=== PATIENT | male | born 1955 | race Two or more races ===

== ENCOUNTER 2024-11-12 07:20 | Inpatient (IN) | payer OTHER ==
[~2024-11-12] VITALS: Ht 180.3 cm; Wt 113.1 kg
[~2024-11-12 07:20] MED LIST: ATEN50TA PO; ATOR10TA52 PO; OMEP1CAP70 PO
--- NOTE | 2024-11-12 07:51 | ED.PDOC ---
HPI Comments 68-year-old male presents with a chief complaint of chest pain x 1 hour with associated sweats. Patient reports that his pain is localized to his substernal chest, nonradiating, describes as pressure and burning sensation, and is associated with sweats. Patients EKG shows A-Fib, but patient denies any history of A-Fib. Patient denies any use of blood thinners or ASA use. No other symptoms or modifying factors present at this time. Chief Complaint: Chest Pain Time Seen by MD: 07:33 Reviewed Notes: Medications, Allergies Allergies: Coded Allergies: NO KNOWN ALLERGIES (Unverified , 11/12/24) Information Source: Patient Mode of Arrival: Ambulatory Severity: Moderate Timing: Hours Duration: Since onset Prehospital treatment: None Location: Substernal Radiation: No Radiation Quality: Pressure, Burning Onset: At Rest Past Medical History PAST MEDICAL HISTORY: Pt Confused Surgical History: Denies all surgeries Family History Family History: Reviewed,noncontributory to illness Social History Smoker: Non-Smoker Alcohol: Denies ETOH Use Drugs: Denies Drug Use Constitutional: reports: sweats; denies: chills, diaphoresis, fatigue, fever, malaise, weakness, others EENTM: denies: blurred vision, double vision, ear bleeding, ear discharge, ear drainage, ear pain, ear ringing, eye pain, eye redness, hearing loss, mouth pain, mouth swelling, nasal discharge, nose bleeding, nose congestion, nose pain, photophobia, tearing, throat pain, throat swelling, voice changes, others Respiratory: denies: cough, hemoptysis, orthopnea, SOB at rest, shortness of breath, SOB with excertion, stridor, wheezing, others Cardiovascular: reports: chest pain; denies: dizzy spells, diaphoresis, Dyspnea on exertion, edema, irregular heart beat, left arm pain, lightheadedness, palpitations, PND, syncope, others Gastrointestinal: denies: abdomen distended, abdominal pain, blood streaked bowels, constipated, diarrhea, dysphagia, difficulty swallowing, hematemesis, melena, nausea, poor appetite, poor fluid intake, rectal bleeding, rectal pain, vomiting, others Genitourinary: denies: burning, dysuria, flank pain, frequency, hematuria, incontinence, penile discharge, penile sore, pain, testicle pain, testicle swelling, urgency, others Neurological: denies: dizziness, fainting, headache, left sided numbness, left sided weakness, numbness, paresthesia, pre-existing deficit, right sided numbness, right sided weakness, seizure, speech problems, tingling, tremors, weakness, others Musculoskeletal: denies: back pain, gout, joint pain, joint swelling, muscle pain, muscle stiffness, neck pain, others Integumetry: denies: bruises, change in color, change in hair/nails, dryness, laceration, lesions, lumps, rash, wounds, others Allergic/Immunocompromised: denies: Difficulty Healing, Frequent Infections, Hives, Itching, others Hematologic/Lymphatic: denies: anemia, blood clots, easy bleeding, easy bruising, swollen glands, others Endocrine: denies: excessive hunger, excessive sweating, excessive thirst, excessive urination, flushing, intolerance to cold, intolerance to heat, unexplained weight gain, unexplained weight loss, others Psychiatric: denies: anxiety, bipolar disorder, depression, hopeless, panic disorder, schizophrenia, sleepless, suicidal, others All Other Systems: Reviewed and Negative Physical Exam General Appearance: Mild Distress, Normal HEENT: Normal ENT Inspection, Pharynx Normal, TMs Normal Neck: Full Range of Motion, Non-Tender, Normal, Normal Inspection Respiratory: Chest Non-Tender, Lungs Clear, No Accessory Muscle Use, No Respiratory Distress, Normal Breath Sounds Cardiovascular: No Edema, No JVD, No Murmur, No Gallop, Normal Peripheral Pulses, Tachycardia Breast Exam: Deferred Gastrointestinal: No Organomegaly, Non Tender, No Pulsatile Mass, Normal Bowel Sounds, Soft Genitalia: Deferred Pelvic: Deferred Rectal: Deferred Extremities: No calf tenderness, Normal capillary refill, Normal inspection, Normal range of motion, Non-tender, No pedal edema Musculoskeletal : Apperance: Normal 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 Was a procedure done?: No CP Differential Dx Differential Diagnosis: A-fib, Anxiety / Panic Attack, MAT, AL, PAC's, PVC's Differential Diagnosis: CHF, HTN Essential Differential Diagnosis: Gastritis, Myocardial Infarction X-Ray, Labs, Meds, VS Vital Signs Date Time Temp Pulse Resp B/P (MAP) Pulse Ox O2 Delivery O2 Flow Rate FiO2 11/12/24 08:40 139 11/12/24 08:06 117/70 11/12/24 07:51 145 11/12/24 07:50 144 15 117/70 (86) 94 11/12/24 07:50 Room Air* 0 21 11/12/24 07:40 97.9 145 15 126/93 (104) 100 11/12/24 07:28 145 Lab Test 11/12/24 09:08 11/12/24 07:50 Range/Units Troponin I High Sensitivity 26 12 </=54 ng/L White Blood Count 7.6 4.4-10.8 10^3/uL Red Blood Count 5.36 4.5-5.90 10^6/uL Hemoglobin 15.5 13.5-17.5 g/dL Hematocrit 45.5 41.0-53.0 % Mean Corpuscular Volume 84.8 80.0-100.0 fL Mean Corpuscular Hemoglobin 28.9 28.0-32.0 pg Mean Corpuscular Hemoglobin Concent 34.0 32.0-36.0 g/dL Red Cell Distribution Width 15.3 H 11.8-14.3 % Platelet Count 190 140-450 10^3/uL Mean Platelet Volume 8.3 6.9-10.8 fL Neutrophils (%) (Auto) 67.0 37.0-80.0 % Lymphocytes (%) (Auto) 22.2 10.0-50.0 % Monocytes (%) (Auto) 6.5 0.0-12.0 % Eosinophils (%) (Auto) 3.5 0.0-7.0 % Basophils (%) (Auto) 0.8 0.0-2.0 % Neutrophils # (Auto) 5.1 1.6-8.6 10 ^3/uL Lymphocytes # (Auto) 1.7 0.4-5.4 10 ^3/uL Monocytes # (Auto) 0.5 0-1.3 10 ^3/uL Eosinophils # (Auto) 0.3 0-0.8 10 ^3/uL Basophils # (Auto) 0.1 0-0.2 10 ^3/uL Nucleated Red Blood Cells 0.0 % Sodium Level 141 136-145 mmol/L Potassium Level 3.8 3.5-5.1 mmol/L Chloride Level 111 H 98-107 mmol/L Carbon Dioxide Level 21 20-31 mmol/L Anion Gap 9 5-15 Blood Urea Nitrogen 19 9-23 mg/dL Creatinine 0.96 0.700-1.30 mg/dL Glomerular Filtration Rate Calc 85 >90 mL/min BUN/Creatinine Ratio 19.8 10.0-20.0 Serum Glucose 140 H 74-106 mg/dL Calcium Level 9.7 8.7-10.4 mg/dL B-Type Natriuretic Peptide 207.27 0-100 pg/mL Current Medications Medications (Trade) Dose Ordered Sig/Lizbeth Route Start Time Stop Time Status Last Admin Sodium Chloride 1,000 ml @ 1,000 mls/hr Q1H ONCE IV 11/12/24 07:45 11/12/24 08:44 DC 11/12/24 08:03 Aspirin 324 mg ONCE ONCE PO 11/12/24 07:45 11/12/24 07:46 DC 11/12/24 08:03 Nitroglycerin (Ntrostat Sublingual) 0.4 mg ONCE ONCE SL 11/12/24 07:45 11/12/24 07:46 DC 11/12/24 08:06 Sodium Chloride 1,000 ml @ 1,000 mls/hr Q1H ONCE IV 11/12/24 09:30 11/12/24 10:29 11/12/24 09:42 Time of 1ST Reevaluation: 08:03 Reevaluation 1ST: Unchanged Patient Education/Counseling: Diagnosis, Treatment, Prognosis Family Education/Counseling: Diagnosis, Treatment, Prognosis Departure 1 Departure Time of Disposition: 10:27 (Patient presented with chest pain that was concerning for possible STEMI, ACS, PE, Pneumonia, Muscle Strain, COPD, Dissec tion. Data: 1. I ordered and reviewed the result of at least 3 labs including a CBC, BMP, and Troponin. 2. I independently interpreted the following tests: EKG which shows AFib with RVR and Chest X-ray which shows benign chest.Risk:This patient has a high risk of morbidity due to further diagnostic testing or treatment and may suffer from an acute cardiac or respiratory disorder. Workup reveals concern for ACS and possible new onset AFib and patient should be admitted for further workup and possible expert consultation. ) Impression: Primary Impression: Acute chest pain Additional Impression: Atrial fibrillation with RVR Disposition: 09 ADMITTED INPATIENT Admit to: Tele Condition: Guarded Critical Care Note Critical Care Time?: Yes Critical care comment: Acute chest pain Authorized and Performed by: Rohit Molina MD Total critical care time: Approximately 34 minutes Due to a high probability of clinically significant, life threatening deterioration, the patient required my highest level of preparedness to intervene emergently and I personally spent this critical care time directly and personally managing the patient. This critical care time included obtaining a history; examining the patient; pulse oximetry; ordering and review of studies; arranging urgent treatment with development of a management plan; evaluation of patient's response to treatment; frequent reassessment; and, discussions with other providers. This critical care time was performed to assess and manage the high probability of imminent, life-threatening deterioration that could result in multi-organ failure. It was exclusive of separately billable procedures and treating other patients and teaching time. Please see my other sections and the rest of the note for further information on patient assessment and treatment. Stability Stability form required: No Heart Score Heart Score: Heart Score Response (Comments) Value History Moderate Suspicious 1 EKG Repolarization Disturb 1 Age >65 2 Risk Factors 1 or 2 risk factors 1 Troponin 1-2 x's Normal limit 1 Total 6 I personally scribed for ROHIT MOLINA MD ([email or web address]) on 11/12/24 at 07:51. Electronically submitted by Mamadou Dee ([email or web address]). ROHIT MOLINA MD Nov 12, 2024 07:51
[2024-11-12 08:01] LABS: Basophils # (auto) 0.1 10 ^3/uL (0-0.2); Basophils % (auto) 0.8 % (0.0-2.0); Eosinophils # (auto) 0.3 10 ^3/uL (0-0.8); Eosinophils % (auto) 3.5 % (0.0-7.0); Hematocrit 45.5 % (41.0-53.0); Hemoglobin 15.5 g/dL (13.5-17.5); Lymphocytes # (auto) 1.7 10 ^3/uL (0.4-5.4); Lymphocytes % (auto) 22.2 % (10.0-50.0); Mean Corpuscular Hemoglobin 28.9 pg (28.0-32.0); Mean Corpuscular Volume 84.8 fL (80.0-100.0); Monocytes # (auto) 0.5 10 ^3/uL (0-1.3); Monocytes % (auto) 6.5 % (0.0-12.0); Neutrophils # (auto) 5.1 10 ^3/uL (1.6-8.6); Platelet Count (auto) 190 10^3/uL (140-450); Red Blood Cells 5.36 10^6/uL (4.5-5.90); Red Cell Distribution Width 15.3 % (11.8-14.3); White Blood Cell 7.6 10^3/uL (4.4-10.8)
[2024-11-12] MEDS: SODIUM CHLORIDE 0.9% 1,000 ML IV ONE ×2 (08:03→09:42)
[2024-11-12] MEDS: ASPirin 81 mg TAB PO ONE (08:03)
[2024-11-12] MEDS: NITROGLYCERIN 0.4 MG SL TAB SL ONE (08:06)
[2024-11-12 08:10] LABS: Potassium 3.8 mmol/L (3.5-5.1); Sodium 141 mmol/L (136-145)
[2024-11-12 08:11] LABS: Anion Gap 9 (5-15); Calcium 9.7 mg/dL (8.7-10.4); Carbon Dioxide 21 mmol/L (20-31)
[2024-11-12 08:16] LABS: BUN/Creatinine Ratio 19.8 (10.0-20.0); Blood Urea Nitrogen 19 mg/dL (9-23); Chloride 111 mmol/L (98-107)
[2024-11-12 08:20] LABS: Glucose 140 mg/dL (74-106)
--- NOTE | 2024-11-12 08:41 | ECG ---
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
[2024-11-12] MEDS: METOPROLOL TARTRATE 1MG/1ML-5ML VIAL IV ONE (09:15)
[2024-11-12] MEDS ORDERED: HYDROcodone-ACET 5/325MG TAB PO PRN (12:45)
[2024-11-12] MEDS ORDERED: NITROGLYCERIN 0.4 MG SL TAB SL PRN (12:45)
[2024-11-12] MEDS ORDERED: ONDANSETRON HCL 4 MG/2 ML VIAL IV PRN (12:45)
[2024-11-12] MEDS ORDERED: MORPHINE SULFATE INJ 2 MG/ml SYRG IV PRN ×2 (12:45)
[2024-11-12] MEDS ORDERED: ACETAMINOPHEN 325 MG TAB PO PRN (12:45)
--- NOTE | 2024-11-12 12:49 | DVHHP2 ---
History of Present Illness Reason for Visit: Chest pain History of Present Illness This 68-year-old male with no significant past medical history presents in the ED with a chief complaint of chest pain. The patient reports chest pain started this morning, described as "chest being full and heart burning" localized on chest and nonradiating. Symptoms is associated with lightheadedness, palpitations, and diaphoresis for which prompted the patient to go to the emergency department. The patient reports history of SVT when he was in his 20s and GERD. Other than the has been healthy throughout his life. He denies tobacco, illicit drug, or ETOH use. Past Medical History SVT Past Surgical History Denies Family History Reviewed, non-contributory to the management of this case. Past Social History The patient lives at home, denies smoking, alcohol or illicit drugs abuse. Review of Systems Constitutional: Yes: Malaise; No: Fever, Chills, Sweats, Weakness, Other Eyes: No: Pain, Vision change, Conjunctivae inflammation, Eyelid inflammation, Other, Redness ENT: No: Ear pain, Ear discharge, Nose pain, Nose discharge, Nose congestion, Mouth pain, Mouth swelling, Throat pain, Throat swelling, Other Respiratory: No: Cough, Dry, Shortness of breath, SOB with excertion, Wheezing, Hemoptysis, Pleuritic Pain, Sputum, Wheezing, Other Cardiovascular: Chest Pain, Palpitations; No: Orthopnea, Paroxysmal Noc. Dyspnea, Edema, Lt Headedness, Other Gastrointestinal: No: Nausea, Vomiting, Abdominal Pain, Diarrhea, Constipation, Melena, Hematochezia, Other Genitourinary: No Dysuria, No Frequency, No Incontinence, No Hematuria, No Retention, No Other Musculoskeletal: No: other, neck pain, shoulder pain, arm pain, back pain, hand pain, leg pain, foot pain Skin: No: Rash, Lesions, Jaundice, Bruising, Other Neurological: No: Weakness, Numbness, Incoordination, Change in speech, Confusion, Seizures, Other Allergies: Coded Allergies: NO KNOWN ALLERGIES (Unverified , 11/12/24) Exam Vital Signs Vital Signs Date Time Temp Pulse Resp B/P (MAP) Pulse Ox O2 Delivery O2 Flow Rate FiO2 11/12/24 12:00 101 15 95/59 (71) 99 11/12/24 07:50 Room Air* 0 21 11/12/24 07:40 97.9 General Appearance: Alert, Oriented X3, Cooperative, mild distress HEENT: Atraumatic, PERRLA, EOMI, Mucous membr. moist/pink Respiratory: Clear to auscultation, Normal air movement Cardiovascular: Other (Atrial fibrillation low 100s) Abdominal: Normal bowel sounds, Soft, No tenderness, No hepatospenomegaly Extremities: No clubbing, No cyanosis, No edema, Normal pulses, No tenderness/swelling Skin: No rashes, No breakdown, No significant lesion Neuro: Normal gait, Normal speech, Normal tone Psych/Mental Status: Mental status NL Labs/Xrays Labs Test 11/12/24 11:13 11/12/24 07:50 Range/Units Troponin I High Sensitivity 74 *H </=54 ng/L White Blood Count 7.6 4.4-10.8 10^3/uL Red Blood Count 5.36 4.5-5.90 10^6/uL Hemoglobin 15.5 13.5-17.5 g/dL Hematocrit 45.5 41.0-53.0 % Mean Corpuscular Volume 84.8 80.0-100.0 fL Mean Corpuscular Hemoglobin 28.9 28.0-32.0 pg Mean Corpuscular Hemoglobin Concent 34.0 32.0-36.0 g/dL Red Cell Distribution Width 15.3 H 11.8-14.3 % Platelet Count 190 140-450 10^3/uL Mean Platelet Volume 8.3 6.9-10.8 fL Neutrophils (%) (Auto) 67.0 37.0-80.0 % Lymphocytes (%) (Auto) 22.2 10.0-50.0 % Monocytes (%) (Auto) 6.5 0.0-12.0 % Eosinophils (%) (Auto) 3.5 0.0-7.0 % Basophils (%) (Auto) 0.8 0.0-2.0 % Neutrophils # (Auto) 5.1 1.6-8.6 10 ^3/uL Lymphocytes # (Auto) 1.7 0.4-5.4 10 ^3/uL Monocytes # (Auto) 0.5 0-1.3 10 ^3/uL Eosinophils # (Auto) 0.3 0-0.8 10 ^3/uL Basophils # (Auto) 0.1 0-0.2 10 ^3/uL Nucleated Red Blood Cells 0.0 % Sodium Level 141 136-145 mmol/L Potassium Level 3.8 3.5-5.1 mmol/L Chloride Level 111 H 98-107 mmol/L Carbon Dioxide Level 21 20-31 mmol/L Anion Gap 9 5-15 Blood Urea Nitrogen 19 9-23 mg/dL Creatinine 0.96 0.700-1.30 mg/dL Glomerular Filtration Rate Calc 85 >90 mL/min BUN/Creatinine Ratio 19.8 10.0-20.0 Serum Glucose 140 H 74-106 mg/dL Calcium Level 9.7 8.7-10.4 mg/dL B-Type Natriuretic Peptide 207.27 0-100 pg/mL Assessment/Plan Assessment/Plan # AFib with RVR, new onset # NSTEMI # chest pain to rule out ACS # hx of SVT Admit to telemetry unit Amiodarone drip Therapeutic Lovenox Chest pain protocol--asa, statins Magnesium Monitor electrolytes and replete as needed Monitor ECG and troponin Cardiology consult Echocardiogram IVF check for uds, and ua # GERD PPI # obesity # hyperglycemia Lifestyle modification counseled with diet, regular exercise, weight loss Check lipid panel, A1c, and TSH DVT prophylaxis Medical plan discussed with patient and RN Plan discussed with: Patient My Orders Orders - SYEDA CASTILLO Procedure Category Date Status Time Admit ADMIT 11/12/24 Verified 12:33 Code Status CODE 11/12/24 Verified 12: 0.9% Ns 1000 Ml PHA 11/12/24 Verified 12:45 Hydrocodone-Acet PHA 11/12/24 Verified 5/325mg Tab (Jones 12:45 Ondansetron Hcl PHA 11/12/24 Verified (Zofran) 12:45 Complete Blood Count LAB 11/13/24 Verified 04:00 Comprehensive LAB 11/13/24 Verified Metabolic Panel 04:00 Cardiac DIET 11/12/24 Verified Diet-2gna,Lofat,Lochol Lunch Echo 2d Mode Cardiac US 11/12/24 Verified DOP 12:33 Condition: Fair MARY 11/12/24 Verified 12:33 Acetaminophen Tablet PHA 11/12/24 Verified (Tylenol Tablet) 12:45 Morphine Sulfate PHA 11/12/24 Verified Injection 12:45 Nitroglycerin PHA 11/12/24 Verified Sublingual (Ntrostat 12:45 Morphine Sulfate PHA 11/12/24 Verified Injection 12:45 Stat Ekg For Chest MARY 11/12/24 Verified Pain 12:33 Notify Md Of Changes MARY 11/12/24 Verified From Base 12:33 Gas Maker For MARY 11/12/24 Verified 24 Hours 12:33 Emergency Dysrhythmia MARY 11/12/24 Verified Protocol 12:33 Rhythm Strips Once MARY 11/12/24 Verified Every Shift 12:33 Oxygen By Nasal RT 11/12/24 Verified Cannula 12:33 * Cardiology Consult CONS 11/12/24 Verified 12:33 Lipid Panel LAB 11/12/24 Verified 12:33 Thyroid Stimulating LAB 11/12/24 Verified Hormone 12:33 Hemoglobin A1c LAB 11/12/24 Verified 12:33 Aspirin Tablet PHA 11/13/24 Verified 10:00 Atorvastatin (Lipitor) PHA 11/12/24 Verified 22:00 Enoxaparin Sodium PHA 11/12/24 Verified (Lovenox) 22:00 Enoxaparin Sodium PHA 11/12/24 Verified (Lovenox) 12:45 Amiodarone Drip 1 PHA 11/12/24 Verified Mg/Min X 6hr 12:45 Amiodarone Drip 0.5 PHA 11/12/24 Verified Mg/Min 18:45 Chest Portable XY 11/12/24 Verified 12:33 Magnesium LAB 11/12/24 Verified 12:33 Urinalysis LAB 11/12/24 Verified 12:33 PTPTT LAB 11/12/24 Verified 12:33 Magnesium To PHA 11/12/24 Verified 12:45 Date of Service: Nov 12, 2024 Billing Provider: SYEDA CASTILLO Common Visit Codes: [id number] INP/OBS CARE (HIGH) SYEDA CASTILLO Nov 12, 2024 12:49
[2024-11-12 12:55] LABS: Urine Bacteria None Seen /hpf (None Seen)
[2024-11-12 13:06] LABS: Urine Blood Negative /uL (Negative); Urine Clarity Clear (Clear); Urine Color Yellow (Yellow); Urine Protein, UAD TRACE (Negative); Urine Specific Gravity 1.024 (1.001-1.035); Urine Squamous Epithelial Cell FEW /hpf (<5); Urine Urobilinogen 3 mg/dL (Negative); Urine WBC 1 /HPF (0-3)
[2024-11-12 13:19] LABS: Magnesium 1.9 mg/dL (1.6-2.6)
[2024-11-12] MEDS: MAGNESIUM SULFATE 1GM/100ML 100 ML IV SCH (13:26)
[2024-11-12] MEDS: SODIUM CHLORIDE 0.9% 1,000 ML IV SCH (13:28)
--- NOTE | 2024-11-12 13:35 | DVH ---
CHEST RADIOGRAPH Indication: chest pain Technique: Single frontal view of the chest was obtained Comparison: None FINDINGS: Lines and Tubes: None Lungs: No focal consolidation. Pleura: No effusion. No pneumothorax. Cardiomediastinal contours: Unremarkable Bones: No acute osseous abnormality. IMPRESSION: 1. No acute cardiopulmonary disease.
[2024-11-12] MEDS: AMIODARONE 360mg/200mL PREMIX 200 ML IV ONE (13:53)
[2024-11-12] MEDS: PANTOPRAZOLE 40 MG/10 ML VIAL INJ IV ONE (14:00)
[2024-11-12] MEDS: ENOXAPARIN SOD 100 MG/1 ML SYRINGE SC ONE (14:05)
[2024-11-12 14:24] LABS: INR 1.08 (0.9-1.15); Partial Thromboplastin Time 27.2 SEC (24.5-34.5); Prothrombin Time 11.4 sec (9.3-11.8)
[2024-11-12 19:30] VITALS: PULSE 87; RESP 17; O2SAT 97
[2024-11-12] MEDS: AMIODARONE 360mg/200mL PREMIX 200 ML IV SCH (19:45)
[2024-11-12 21:54] VITALS: BP 126/73; PULSE 81; RESP 16; RESP 18; TEMP 98.3; O2SAT 97; O2SAT 98
[2024-11-12] MEDS: ATORVASTATIN 20 MG TAB PO SCH (22:51)
[2024-11-12] MEDS: ENOXAPARIN SOD 100 MG/1 ML SYRINGE SC SCH (22:52)
--- NOTE | 2024-11-12 23:21 | DVHSR ---
APPROVED REPORT EXAM: LIMITED Two-dimensional and M-mode echocardiogram with Doppler and color Doppler. Blood Pressure: 95/59 mmHg INDICATION NSTEMI RISK FACTORS Height: 5' 11", Weight: 235 DIMENSIONS LVDd5.2 (3.8-5.7cm)LA (2D)4.3 (1.9-4.0cm)Aortic Root4.1 (2.0-3.7cm) LVDs3.8 (2.5-4.0cm)LA (MM) (1.9-4.0cm)Aortic Cusp Exc2.1 (1.5-2.0cm) EF (%) 52.0 (55-70%)Rt. Atrium4.2 (1.9-4.0cm)Asc. Aorta cm IVSd1.4 (0.7-1.1cm)RV (D) (1.8-2.4cm) PWd1.5 (0.7-1.1cm) Mitral Valve MitralMitral Stenosis E wave1.20m/sMV Mean GR.mmHg E/A ratio0.02D MVAcm2 Aortic Valve Aortic ValveAortic Stenosis V11.10m/Hazel Mean GR.4mmHg V21.20m/Hazel Peak GR.6mmHg LVOT Diameter2.5 (1.8-2.4cm)Doppler AVA4.50cm2 Pulmonic Valve V20.90m/s Other Information Quality : Technically LimitedRhythm : Abnormal. Technically limited study due to rhythm. Conclusion MILD LVH AND MILD LV DIASTOLIC DYSFUNCTION LV EJECTION FRACTION IS 65% NORMAL VALVES NO EFFUSION
[2024-11-13] VITALS (8 sets, daily range): BP systolic 102–139; BP diastolic 57–78; PULSE 53–78; RESP 14–18; TEMP 97.3–98.3; O2SAT 94–99
[2024-11-13 07:13] LABS: Basophils # (auto) 0 10 ^3/uL (0-0.2); Basophils % (auto) 0.5 % (0.0-2.0); Eosinophils # (auto) 0.2 10 ^3/uL (0-0.8); Eosinophils % (auto) 2.3 % (0.0-7.0); Hematocrit 39.3 % (41.0-53.0); Hemoglobin 13.6 g/dL (13.5-17.5); Lymphocytes # (auto) 1.3 10 ^3/uL (0.4-5.4); Lymphocytes % (auto) 18.8 % (10.0-50.0); Mean Corpuscular Hemoglobin 29.5 pg (28.0-32.0); Mean Corpuscular Hgb Conc. 34.6 g/dL (32.0-36.0); Mean Corpuscular Volume 85.2 fL (80.0-100.0); Monocytes # (auto) 0.4 10 ^3/uL (0-1.3); Monocytes % (auto) 5.3 % (0.0-12.0); Neutrophils # (auto) 5.2 10 ^3/uL (1.6-8.6); Neutrophils % (auto) 73.1 % (37.0-80.0); Platelet Count (auto) 174 10^3/uL (140-450); Red Blood Cells 4.62 10^6/uL (4.5-5.90); Red Cell Distribution Width 14.9 % (11.8-14.3); White Blood Cell 7.1 10^3/uL (4.4-10.8)
--- NOTE | 2024-11-13 07:13 | ECG ---
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
[2024-11-13 07:29] LABS: Alanine Aminotransferase 15 U/L (7-40); Alkaline Phosphatase 90 U/L (46-116); Anion Gap 8 (5-15); BUN/Creatinine Ratio 15.4 (10.0-20.0); Blood Urea Nitrogen 14 mg/dL (9-23); Calcium 8.9 mg/dL (8.7-10.4); Carbon Dioxide 23 mmol/L (20-31); Sodium 141 mmol/L (136-145)
[2024-11-13 07:30] LABS: Albumin 3.8 g/dL (3.2-4.8); Aspartate Aminotransferase 18 U/L (13-40)
[2024-11-13 07:31] LABS: Total Protein 5.8 g/dL (5.7-8.2)
[2024-11-13 07:33] LABS: Chloride 110 mmol/L (98-107); Glucose 115 mg/dL (74-106)
[2024-11-13 07:37] LABS: Bilirubin, Total 0.6 mg/dL (0.2-1.0)
[2024-11-13] MEDS: PANTOPRAZOLE 40 MG/10 ML VIAL INJ IV SCH (10:34)
[2024-11-13] MEDS: ASPirin 81 mg TAB PO SCH (10:34)
--- NOTE | 2024-11-13 12:36 | DVHPN2 ---
Progress Note Date Seen: Nov 13, 2024 Medical Necessity Reason Pt with a Central, PICC or Fol: No Subjective Patient reports: No new complaints Review of Systems: HEENT:Normal, CVS:Normal, RESPIRATORY:Normal, GI:Normal, :Normal, MSK:Normal, NEURO:Normal Objective vital signs Vital Sign Date Time Temp Pulse Resp B/P (MAP) Pulse Ox O2 Delivery O2 Flow Rate FiO2 11/13/24 09:00 98.0 56 16 102/57 (72) 98 98.0 11/12/24 21:54 Room Air* 0 21 Total Intake and Output 11/12/24 11/12/24 11/13/24 14:59 22:59 06:59 Intake Total 2208.33 ml 649.97 ml 300 ml Balance 2208.33 ml 649.97 ml 300 ml medications Current Medications Medications Dose Ordered Sig/Lizbeth Route Start Time Stop Time Status Last Admin Dose Admin Sodium Chloride 1,000 ml @ 75 mls/hr [id number] IV 11/12/24 12:45 11/13/24 06:14 75 MLS/HR Acetaminophen/ Hydrocodone Bitart 1 tab Q4HP PRN PO 11/12/24 12:45 Ondansetron HCl 4 mg Q4HP PRN IV 11/12/24 12:45 Acetaminophen 650 mg Q6HP PRN PO 11/12/24 12:45 Morphine Sulfate 2 mg Q4HPRN PRN IV 11/12/24 12:45 Nitroglycerin 0.4 mg Q5MINP PRN SL 11/12/24 12:45 Morphine Sulfate 2 mg Q30M PRN IV 11/12/24 12:45 Aspirin 81 mg DAILY PO 11/13/24 10:00 11/13/24 10:34 81 MG Atorvastatin Calcium 40 mg HS PO 11/12/24 22:00 11/12/24 22:51 40 MG Enoxaparin Sodium 110 mg Q12HR SC 11/12/24 22:00 11/13/24 10:34 110 MG Pantoprazole Sodium 40 mg DAILY IV 11/13/24 10:00 11/13/24 10:34 40 MG Examination: GENERAL:Normal, HEENT:Normal, NECK:Normal, LUNGS:Normal, CVS:Normal, ABDOMEN:Normal, MSK:Normal, SKIN:Normal, NEURO:Normal, :Normal laboratory and microbiology Laboratory Tests 11/13/24 06:12 Test 11/13/24 06:12 Range/Units Serum Glucose 115 H 74-106 mg/dL Problem List/Assessment/Plan Problem List/Assessment/Plan #1 a fib with rvr: cardio eval, echo #2 nstemi: cardio eval #3 hyperlipidemia #4 h/o svt advance care planning- full code- time spent 19 mins Plan discussed with: Patient Date of Service: Nov 13, 2024 Billing Provider: HARISH POWELL MD Common Visit Codes: [id number] INP/OBS CARE(HIGH) Secondary Visit Codes: [id number] CARE PLAN 30 MINUTES HARISH POWELL MD Nov 13, 2024 12:36
--- NOTE | 2024-11-13 16:00 | ECG ---
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
[2024-11-13] MEDS ORDERED: HYDROcodone-ACET 7.5/325MG TAB PO PRN (20:15)
--- NOTE | 2024-11-13 23:12 | DVHINCON2 ---
Date of service: Nov 13, 2024 Referring Physician Skip Reason for Consultation A Fib with RVR, NSTEMI History of Present Illness This is a 68 year old male with no significant past medical history who presented to the ED due to complaints of chest pain x 1 hour with associated sweats. Patient reports that his pain is localized to his substernal chest, nonradiating, describes as pressure and burning sensation, and is associated with sweats. Patients EKG shows A-Fib, but patient denies any history of A-Fib. Patient denies any use of blood thinners or ASA use. EKG which shows AFib with RVR. Troponin 12 > 26 > 74. Patient was admitted to the hospital. I am asked to consult on this patient. Family History: Diabetes mellitus G8 MOTHER Allergies: Coded Allergies: NO KNOWN ALLERGIES (Unverified , 11/12/24) Home Meds Reported Medications Omeprazole (Omeprazole Dr) 20 Mg Cap, 1 CAP PO BID for 100 Days, #200 11/13/24 Atorvastatin Calcium (ATORVASTATIN CALCIUM) 10 Mg Tab, 1 TAB PO DAILY for 100 Days, #100 11/13/24 Atenolol (Atenolol) 50 Mg Tab, 1 TAB PO DAILY for 100 Days, #100 11/13/24 Current Medications Current Medications Medications (Trade) Dose Ordered Sig/Lizbeth Route PRN Reason Start Time Stop Time Status Last Admin Aspirin 81 mg DAILY PO 11/13/24 10:00 11/13/24 12:32 DC 11/13/24 10:34 Pantoprazole Sodium (Protonix) 40 mg DAILY IV 11/13/24 10:00 11/13/24 10:34 Acetaminophen/ Hydrocodone Bitart ([place] 7.5/325MG Tab) 1 tab Q6HP PRN PO SEVERE PAIN (7-10 PAIN SCALE) 11/13/24 20:15 Cancel Review of Systems Constitutional: reports: sweats; denies: chills, diaphoresis, fatigue, fever, malaise, weakness, others EENTM: denies: blurred vision, double vision, ear bleeding, ear discharge, ear drainage, ear pain, ear ringing, eye pain, eye redness, hearing loss, mouth pain, mouth swelling, nasal discharge, nose bleeding, nose congestion, nose pain, photophobia, tearing, throat pain, throat swelling, voice changes, others Respiratory: denies: cough, hemoptysis, orthopnea, SOB at rest, shortness of breath, SOB with excertion, stridor, wheezing, others Cardiovascular: reports: chest pain; denies: dizzy spells, diaphoresis, Dyspnea on exertion, edema, irregular heart beat, left arm pain, lightheadedness, palpitations, PND, syncope, others Gastrointestinal: denies: abdomen distended, abdominal pain, blood streaked bowels, constipated, diarrhea, dysphagia, difficulty swallowing, hematemesis, melena, nausea, poor appetite, poor fluid intake, rectal bleeding, rectal pain, vomiting, others Genitourinary: denies: burning, dysuria, flank pain, frequency, hematuria, incontinence, penile discharge, penile sore, pain, testicle pain, testicle swelling, urgency, others Neurological: denies: dizziness, fainting, headache, left sided numbness, left sided weakness, numbness, paresthesia, pre-existing deficit, right sided numbness, right sided weakness, seizure, speech problems, tingling, tremors, weakness, others Musculoskeletal: denies: back pain, gout, joint pain, joint swelling, muscle pain, muscle stiffness, neck pain, others Integumetry: denies: bruises, change in color, change in hair/nails, dryness, laceration, lesions, lumps, rash, wounds, others Allergic/Immunocompromised: denies: Difficulty Healing, Frequent Infections, Hives, Itching, others Hematologic/Lymphatic: denies: anemia, blood clots, easy bleeding, easy bruising, swollen glands, others Endocrine: denies: excessive hunger, excessive sweating, excessive thirst, excessive urination, flushing, intolerance to cold, intolerance to heat, unexplained weight gain, unexplained weight loss, others Psychiatric: denies: anxiety, bipolar disorder, depression, hopeless, panic disorder, schizophrenia, sleepless, suicidal, others All Other Systems: Reviewed and Negative Vital Signs Vital Signs Date Time Temp Pulse Resp B/P (MAP) Pulse Ox O2 Delivery O2 Flow Rate FiO2 11/13/24 21:04 98.3 60 14 131/63 (85) 97 98.3 11/13/24 20:00 Room Air* 0 21 Physical Exam GENERAL: Awake, alert, oriented. Obese LUNGS: Clear. CARDIOVASCULAR: Heart sounds are good. ABDOMEN: Soft. Labs/Diagnostic Data Labs Test 11/13/24 06:12 11/12/24 13:15 11/12/24 11:13 11/12/24 07:50 Range/Units White Blood Count 7.1 4.4-10.8 10^3/uL Red Blood Count 4.62 4.5-5.90 10^6/uL Hemoglobin 13.6 13.5-17.5 g/dL Hematocrit 39.3 #L 41.0-53.0 % Mean Corpuscular Volume 85.2 80.0-100.0 fL Mean Corpuscular Hemoglobin 29.5 28.0-32.0 pg Mean Corpuscular Hemoglobin Concent 34.6 32.0-36.0 g/dL Red Cell Distribution Width 14.9 H 11.8-14.3 % Platelet Count 174 140-450 10^3/uL Mean Platelet Volume 9.0 6.9-10.8 fL Neutrophils (%) (Auto) 73.1 37.0-80.0 % Lymphocytes (%) (Auto) 18.8 10.0-50.0 % Monocytes (%) (Auto) 5.3 0.0-12.0 % Eosinophils (%) (Auto) 2.3 0.0-7.0 % Basophils (%) (Auto) 0.5 0.0-2.0 % Neutrophils # (Auto) 5.2 1.6-8.6 10 ^3/uL Lymphocytes # (Auto) 1.3 0.4-5.4 10 ^3/uL Monocytes # (Auto) 0.4 0-1.3 10 ^3/uL Eosinophils # (Auto) 0.2 0-0.8 10 ^3/uL Basophils # (Auto) 0 0-0.2 10 ^3/uL Nucleated Red Blood Cells 0.0 % Sodium Level 141 136-145 mmol/L Potassium Level 4.0 3.5-5.1 mmol/L Chloride Level 110 H 98-107 mmol/L Carbon Dioxide Level 23 20-31 mmol/L Anion Gap 8 5-15 Blood Urea Nitrogen 14 9-23 mg/dL Creatinine 0.91 0.700-1.30 mg/dL Glomerular Filtration Rate Calc 91 >90 mL/min BUN/Creatinine Ratio 15.4 10.0-20.0 Serum Glucose 115 H 74-106 mg/dL Calcium Level 8.9 8.7-10.4 mg/dL Total Bilirubin 0.6 0.2-1.0 mg/dL Aspartate Amino Transferase (AST) 18 13-40 U/L Alanine Aminotransferase (ALT) 15 7-40 U/L Alkaline Phosphatase 90 46-116 U/L Total Protein 5.8 5.7-8.2 g/dL Albumin 3.8 3.2-4.8 g/dL Prothrombin Time 11.4 9.3-11.8 sec Prothrombin Time INR 1.08 0.9-1.15 Activated Partial Thromboplast Time 27.2 24.5-34.5 SEC Troponin I High Sensitivity 74 *H </=54 ng/L Urine Color Yellow Yellow Urine Clarity Clear Clear Urine pH 6.0 5.0-9.0 Urine Specific [place] 1.024 1.001-1.035 Urine Protein Trace H Negative Urine Ketones Negative Negative Urine Blood Negative Negative /uL Urine Nitrite Negative Negative Urine Bilirubin Negative Negative Urine Urobilinogen 3 H Negative mg/dL Urine Leukocyte Esterase Negative Negative /uL Urine RBC None seen 0 - 3 /hpf Urine Microscopic WBC 1 0-3 /HPF Urine Squamous Epithelial Cells Few <5 /hpf Urine Bacteria None seen None Seen /hpf Urine Glucose Normal Normal mg/dL Hemoglobin A1c 5.6 <5.7 % A1C Magnesium Level 1.9 1.6-2.6 mg/dL B-Type Natriuretic Peptide 207.27 0-100 pg/mL Triglycerides Level 195 H < 150 mg/dL Cholesterol Level 165 < 200 mg/dL LDL Cholesterol 111 H < 100 mg/dL HDL Cholesterol 31 L 40-59 mg/dL Thyroid Stimulating Hormone (TSH) 2.26 0.55-4.78 uIU/mL Assessment A fib with RVR. NSTEMI. Hyperlipidemia History of SVT. Chest pain. GERD. Obesity. Plan/Recommendation I agree with your ongoing assessment and care of plan. Trend troponin. Telemetry reviewed. Echocardiogram. Morphine and [place] for pain management. Lipitor. DVT and GI prophylactics. Additional plan as per the hospital course. A total of 45 minutes was spent reviewing the patient record, examining the patient, making a diagnostic and therapeutic plan, discussing this plan with medical personnel, following up on diagnostic studies and following the patient for clinical stability excluding any and all procedures. At least 50% of this time was spent in direct, [id number] contact. Plan discussed with: Patient ALEJANDRO BALL MD Nov 13, 2024 22:44
[2024-11-14 00:49] VITALS: BP 149/81; PULSE 60; RESP 14; TEMP 98.7; O2SAT 96
[2024-11-14 05:00] VITALS: BP 141/69; PULSE 53; RESP 20; TEMP 97.9; O2SAT 96
[2024-11-14 08:00] VITALS: PULSE 74
[2024-11-14 09:00] VITALS: BP 124/68; PULSE 61; RESP 18; TEMP 98.3; O2SAT 98
--- NOTE | 2024-11-14 12:55 | DVHDS2 ---
Discharge Summary Date of Admission Nov 12, 2024 at 12:33 Date of Discharge: Nov 14, 2024 Labs/Diagnostic Data: Laboratory Results Test 11/13/24 06:12 11/12/24 13:15 11/12/24 11:13 11/12/24 07:50 White Blood Count 7.1 10^3/uL (4.4-10.8) Red Blood Count 4.62 10^6/uL (4.5-5.90) Hemoglobin 13.6 g/dL (13.5-17.5) Hematocrit 39.3 % (41.0-53.0) Mean Corpuscular Volume 85.2 fL (80.0-100.0) Mean Corpuscular Hemoglobin 29.5 pg (28.0-32.0) Mean Corpuscular Hemoglobin Concent 34.6 g/dL (32.0-36.0) Red Cell Distribution Width 14.9 % (11.8-14.3) Platelet Count 174 10^3/uL (140-450) Mean Platelet Volume 9.0 fL (6.9-10.8) Neutrophils (%) (Auto) 73.1 % (37.0-80.0) Lymphocytes (%) (Auto) 18.8 % (10.0-50.0) Monocytes (%) (Auto) 5.3 % (0.0-12.0) Eosinophils (%) (Auto) 2.3 % (0.0-7.0) Basophils (%) (Auto) 0.5 % (0.0-2.0) Neutrophils # (Auto) 5.2 10 ^3/uL (1.6-8.6) Lymphocytes # (Auto) 1.3 10 ^3/uL (0.4-5.4) Monocytes # (Auto) 0.4 10 ^3/uL (0-1.3) Eosinophils # (Auto) 0.2 10 ^3/uL (0-0.8) Basophils # (Auto) 0 10 ^3/uL (0-0.2) Nucleated Red Blood Cells 0.0 % Sodium Level 141 mmol/L (136-145) Potassium Level 4.0 mmol/L (3.5-5.1) Chloride Level 110 mmol/L (98-107) Carbon Dioxide Level 23 mmol/L (20-31) Anion Gap 8 (5-15) Blood Urea Nitrogen 14 mg/dL (9-23) Creatinine 0.91 mg/dL (0.700-1.30) Glomerular Filtration Rate Calc 91 mL/min (>90) BUN/Creatinine Ratio 15.4 (10.0-20.0) Serum Glucose 115 mg/dL (74-106) Calcium Level 8.9 mg/dL (8.7-10.4) Total Bilirubin 0.6 mg/dL (0.2-1.0) Aspartate Amino Transferase (AST) 18 U/L (13-40) Alanine Aminotransferase (ALT) 15 U/L (7-40) Alkaline Phosphatase 90 U/L (46-116) Total Protein 5.8 g/dL (5.7-8.2) Albumin 3.8 g/dL (3.2-4.8) Prothrombin Time 11.4 sec (9.3-11.8) Prothrombin Time INR 1.08 (0.9-1.15) Activated Partial Thromboplast Time 27.2 SEC (24.5-34.5) Troponin I High Sensitivity 74 ng/L (</=54) Urine Color Yellow (Yellow) Urine Clarity Clear (Clear) Urine pH 6.0 (5.0-9.0) Urine Specific [place] 1.024 (1.001-1.035) Urine Protein Trace (Negative) Urine Ketones Negative (Negative) Urine Blood Negative /uL (Negative) Urine Nitrite Negative (Negative) Urine Bilirubin Negative (Negative) Urine Urobilinogen 3 mg/dL (Negative) Urine Leukocyte Esterase Negative /uL (Negative) Urine RBC None seen /hpf (0 - 3) Urine Microscopic WBC 1 /HPF (0-3) Urine Squamous Epithelial Cells Few /hpf (<5) Urine Bacteria None seen /hpf (None Seen) Urine Glucose Normal mg/dL (Normal) Hemoglobin A1c 5.6 % A1C (<5.7) Magnesium Level 1.9 mg/dL (1.6-2.6) B-Type Natriuretic Peptide 207.27 pg/mL (0-100) Triglycerides Level 195 mg/dL (< 150) Cholesterol Level 165 mg/dL (< 200) LDL Cholesterol 111 mg/dL (< 100) HDL Cholesterol 31 mg/dL (40-59) Thyroid Stimulating Hormone (TSH) 2.26 uIU/mL (0.55-4.78) Other Laboratory Tests 11/13/24 06:12 Brief Hx & Hospital Course: see dictated note Condition at Discharge: Fair Final Diagnosis/Problems List a fib Discharge Disposition: Acute Care Facility Discharge Instruct/Medications Diet: Cardiac 2g Na,low cholest Activity: No Restrictions, As Tolerated Follow Up/Referral: fu with [facility] [place] Medications: per dec Discharge Statement: "Patient was advised to return to the ER or call 911 if any headaches, dizziness, shortness of breath, chest pain, abdominal pain, bleeding, fevers, or worsening of medical condition. Patient was counseled about treatment plan, medications, possible side effects, patientverbalized understanding. All questions were answered to the best of my ability. This discharge took greater then 30 minutes in planning, reviewing documentation, counseling the patient, and discussing with other team members." ASSESSMENT ASSESSMENT Assessment a fib Date of Service: Nov 14, 2024 Billing Provider: HARISH POWELL MD Common Visit Codes: 35415-NSP/OBS DISCH DAY >30min HARISH POWELL MD Nov 14, 2024 12:55
[2024-11-14 13:00] VITALS: BP 140/76; PULSE 58; RESP 20; TEMP 98; O2SAT 97
[2024-11-14] MEDS ORDERED: APIX5TAB PO (13:19)
--- NOTE | 2024-11-14 13:43 | DVHDS ---
DATE OF DISCHARGE: 11/14/2024 TRANSFER SUMMARY DATE OF TRANSFER: 11/14/2024 HISTORY OF PRESENT ILLNESS: The patient is a 68-year-old gentleman who was admitted with chest pain and burning accompanied by lightheadedness and palpitations. The patient has previous history of SVT. HOSPITAL COURSE: The patient was noted to be in atrial fibrillation with rapid ventricular rate. The patient was started on intravenous amiodarone that was subsequently stopped because of bradycardia. The patient was seen in Cardiology consult by Dr. Lemus. Echocardiogram done showed ejection fraction of 65%. Troponin level was mildly elevated at 74. The patient's TSH was normal at 2.26. The patient will now be transferred to [facility] for further workup including an ischemic workup. FINAL DIAGNOSES: * Atrial fibrillation with rapid ventricular rate. * Non-ST elevation myocardial infarction. * Hyperlipidemia. * History of supraventricular tachycardia. * Obesity. Time spent in discharge planning and review of plan with the patient, and nursing was 38 minutes. MD RUPAL Torres/AMIRAH TID: [id number] RECEIPT: [id number]
--- NOTE | 2024-11-14 16:34 | DVHPN2 ---
Progress Note - Dictate Date Seen: Nov 14, 2024 Medical Necessity Reason Pt with a Central, PICC or Fol: No Subjective Patient was seen and evaluated in follow up. No overnight events. Patient reports feeling better today. Echocardiogram done showed ejection fraction of 65%. Telemetry reviewed. vital signs Vital Sign Date Time Temp Pulse Resp B/P (MAP) Pulse Ox O2 Delivery O2 Flow Rate FiO2 11/14/24 13:00 98.0 58 20 140/76 (97) 97 98.0 11/14/24 08:00 Room Air* 0 21 Total Intake and Output 11/13/24 11/13/24 11/14/24 15:00 23:00 07:00 Intake Total 500 ml 0 ml Balance 500 ml 0 ml medications Current Medications Medications Dose Ordered Sig/Lizbeth Route Start Time Stop Time Status Last Admin Dose Admin Acetaminophen/ Hydrocodone Bitart 1 tab Q6HP PRN PO 11/13/24 20:15 Cancel objective GENERAL: Awake, alert, oriented. Obese LUNGS: Clear. CARDIOVASCULAR: Heart sounds are good. ABDOMEN: Soft. laboratory and microbiology Laboratory Tests 11/13/24 06:12 Test 11/13/24 06:12 Range/Units Serum Glucose 115 H 74-106 mg/dL Problem List A fib with RVR. NSTEMI. Hyperlipidemia History of SVT. Chest pain. GERD. Obesity. Assessment/Plan Continued all current supportive medical care. Morphine and [place] for pain management. Lipitor. DVT and GI prophylactics. Additional plan as per the hospital course. A total of 25 minutes was spent reviewing the patient record, examining the patient, making a diagnostic and therapeutic plan, discussing this plan with medical personnel, following up on diagnostic studies and following the patient for clinical stability excluding any and all procedures. At least 50% of this time was spent in direct, [id number] contact. Plan discussed with: Patient ALEJANDRO BALL MD Nov 14, 2024 16:34
== END 2024-11-14 16:16 | disposition home or self-care (01) | DRG 282 ==
LOC: ER 07:20 → TELE 12:33 → TELE-WESTW 22:05 → OVERFLOW 11-14 15:49 → WEST WING 11-14 16:02
PROVIDERS: ADMIT Registered Nurse; ATTEND Internal Medicine
DX: I48.0 Paroxysmal atrial fibrillation (principal); I21.4 Non-ST elevation (NSTEMI) myocardial infarction; K21.9 Gastro-esophageal reflux disease without esophagitis; E66.9 Obesity, unspecified; R73.9 Hyperglycemia, unspecified; E78.5 Hyperlipidemia, unspecified; Z83.3 Family history of diabetes mellitus; Z68.34 Body mass index [BMI] 34.0-34.9, adult
CPT/HCPCS: 36415; 71045; 80048; 80053; 80061; 81001; 83036; 83735; 83880; 84443; 84484; 85025; 85610; 85730; 93005; 93306; 99291; G0378; J2470

== ENCOUNTER 2024-12-26 13:12 | Emergency (ER) | payer OTHER ==
[~2024-12-26] VITALS: Ht 177.8 cm; Wt 109.2 kg
[~2024-12-26 13:12] MED LIST changes: +APIX5TAB PO
[2024-12-26 13:50] LABS: Basophils # (auto) 0.1 10 ^3/uL (0-0.2); Eosinophils # (auto) 0.2 10 ^3/uL (0-0.8); Eosinophils % (auto) 3.6 % (0.0-7.0); Hematocrit 44.7 % (41.0-53.0); Lymphocytes # (auto) 1.4 10 ^3/uL (0.4-5.4); Lymphocytes % (auto) 21.2 % (10.0-50.0); Mean Corpuscular Hemoglobin 28.7 pg (28.0-32.0); Mean Corpuscular Hgb Conc. 33.6 g/dL (32.0-36.0); Mean Corpuscular Volume 85.5 fL (80.0-100.0); Monocytes # (auto) 0.4 10 ^3/uL (0-1.3); Monocytes % (auto) 6.5 % (0.0-12.0); Neutrophils # (auto) 4.6 10 ^3/uL (1.6-8.6); Neutrophils % (auto) 67.7 % (37.0-80.0); Platelet Count (auto) 199 10^3/uL (140-450); Red Blood Cells 5.23 10^6/uL (4.5-5.90); Red Cell Distribution Width 15.2 % (11.8-14.3); White Blood Cell 6.8 10^3/uL (4.4-10.8)
--- NOTE | 2024-12-26 13:50 | ED.PDOC ---
History of Present Illness HPI Comments 69-year-old male who comes in with chief complaint of dizziness since this morning. The patient states that he woke up this morning and it seemed like the room was spinning. He denies any chest pain, shortness for breath or palpitations. The patient also denies any nausea or vomiting. He states that typically he will have some palpitations but this seems somewhat different. He has had atrial fibrillation in the past. There has been no other complaints at this time. Chief Complaint: Dizziness Time Seen by MD: 13:16 Reviewed Notes: Nurses Notes, Medications, Allergies (No allergies to medications) Allergies: Coded Allergies: NO KNOWN ALLERGIES (Unverified , 11/12/24) Home Meds Active Scripts Apixaban Base (ELIQUIS) 5 Mg Tab, 5 MG PO BID for 30 Days, #60 TAB 2 Refills Prov:HARISH POWELL MD 11/14/24 Reported Medications Omeprazole (Omeprazole Dr) 20 Mg Cap, 1 CAP PO BID for 100 Days, #200 11/13/24 Atorvastatin Calcium (ATORVASTATIN CALCIUM) 10 Mg Tab, 1 TAB PO DAILY for 100 Days, #100 11/13/24 Atenolol (Atenolol) 50 Mg Tab, 1 TAB PO DAILY for 100 Days, #100 11/13/24 Information Source: Patient Mode of Arrival: Ambulatory Severity: Moderate Timing: Hours (Symptoms started this morning) Duration: Since onset Prehospital treatment: None Associated signs and symptoms Generalized dizziness Past Medical History PAST MEDICAL HISTORY: AFIB, High Lipids, OR Surgical History: Tonsillectomy Family History Family History: Reviewed,noncontributory to illness Social History Smoker: Non-Smoker Alcohol: Denies ETOH Use Drugs: Denies Drug Use Lives In: Home Constitutional: denies: chills, diaphoresis, fatigue, fever, malaise, sweats, weakness, others EENTM: denies: blurred vision, double vision, ear bleeding, ear discharge, ear drainage, ear pain, ear ringing, eye pain, eye redness, hearing loss, mouth pain, mouth swelling, nasal discharge, nose bleeding, nose congestion, nose pain, photophobia, tearing, throat pain, throat swelling, voice changes, others Respiratory: denies: cough, hemoptysis, orthopnea, SOB at rest, shortness of breath, SOB with excertion, stridor, wheezing, others Cardiovascular: reports: dizzy spells; denies: chest pain, diaphoresis, Dyspnea on exertion, edema, irregular heart beat, left arm pain, lightheadedness, palpitations, PND, syncope, others Gastrointestinal: denies: abdomen distended, abdominal pain, blood streaked bowels, constipated, diarrhea, dysphagia, difficulty swallowing, hematemesis, melena, nausea, poor appetite, poor fluid intake, rectal bleeding, rectal pain, vomiting, others Genitourinary: denies: burning, dysuria, flank pain, frequency, hematuria, incontinence, penile discharge, penile sore, pain, testicle pain, testicle swel ling, urgency, others Neurological: denies: dizziness, fainting, headache, left sided numbness, left sided weakness, numbness, paresthesia, pre-existing deficit, right sided numbness, right sided weakness, seizure, speech problems, tingling, tremors, weakness, others Musculoskeletal: denies: back pain, gout, joint pain, joint swelling, muscle pain, muscle stiffness, neck pain, others Integumetry: denies: bruises, change in color, change in hair/nails, dryness, laceration, lesions, lumps, rash, wounds, others Allergic/Immunocompromised: denies: Difficulty Healing, Frequent Infections, Hives, Itching, others Hematologic/Lymphatic: denies: anemia, blood clots, easy bleeding, easy bruising, swollen glands, others Endocrine: denies: excessive hunger, excessive sweating, excessive thirst, excessive urination, flushing, intolerance to cold, intolerance to heat, unexplained weight gain, unexplained weight loss, others Psychiatric: denies: anxiety, bipolar disorder, depression, hopeless, panic disorder, schizophrenia, sleepless, suicidal, others Physical Exam General Appearance: Moderate Distress HEENT: Normal ENT Inspection, Pharynx Normal, TMs Normal Neck: Full Range of Motion, Non-Tender, Normal, Normal Inspection Respiratory: Chest Non-Tender, Lungs Clear, No Accessory Muscle Use, No Respiratory Distress, Normal Breath Sounds Cardiovascular: Bradycardia, No Edema, No JVD, No Murmur, No Gallop Breast Exam: Deferred Gastrointestinal: No Organomegaly, Non Tender, No Pulsatile Mass, Normal Bowel Sounds, Soft Genitalia: Deferred Pelvic: Deferred Rectal: Deferred Extremities: No calf tenderness, Normal capillary refill, Normal inspection, Normal range of motion, Non-tender, No pedal edema Musculoskeletal : Apperance: Normal 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 Was a procedure done?: No EKG EKG : Pulse Rate (adult): 54 [place]: Normal Cardiac Rhythm: NSR Block: None ST: Nonsp Differential Dx Considerations may include: Symptomatic bradycardia, generalized weakness, electrolyte imbalance X-Ray, Labs, Meds, VS Vital Signs Date Time Temp Pulse Resp B/P (MAP) Pulse Ox O2 Delivery O2 Flow Rate FiO2 12/26/24 15:43 98.1 60 19 139/65 (89) 100 98.1 12/26/24 15:43 60 19 100 Room Air 12/26/24 13:50 54 12/26/24 13:25 53 12/26/24 13:24 98.0 98 17 133/76 (95) 97 98.0 Lab Test 12/26/24 14:18 12/26/24 13:39 12/26/24 13:21 Range/Units Troponin I High Sensitivity 7 7 </=54 ng/L White Blood Count 6.8 4.4-10.8 10^3/uL Red Blood Count 5.23 4.5-5.90 10^6/uL Hemoglobin 15.0 13.5-17.5 g/dL Hematocrit 44.7 41.0-53.0 % Mean Corpuscular Volume 85.5 80.0-100.0 fL Mean Corpuscular Hemoglobin 28.7 28.0-32.0 pg Mean Corpuscular Hemoglobin Concent 33.6 32.0-36.0 g/dL Red Cell Distribution Width 15.2 H 11.8-14.3 % Platelet Count 199 140-450 10^3/uL Mean Platelet Volume 8.1 6.9-10.8 fL Neutrophils (%) (Auto) 67.7 37.0-80.0 % Lymphocytes (%) (Auto) 21.2 10.0-50.0 % Monocytes (%) (Auto) 6.5 0.0-12.0 % Eosinophils (%) (Auto) 3.6 0.0-7.0 % Basophils (%) (Auto) 1.0 0.0-2.0 % Neutrophils # (Auto) 4.6 1.6-8.6 10 ^3/uL Lymphocytes # (Auto) 1.4 0.4-5.4 10 ^3/uL Monocytes # (Auto) 0.4 0-1.3 10 ^3/uL Eosinophils # (Auto) 0.2 0-0.8 10 ^3/uL Basophils # (Auto) 0.1 0-0.2 10 ^3/uL Nucleated Red Blood Cells 0.0 % Sodium Level 142 136-145 mmol/L Potassium Level 4.3 3.5-5.1 mmol/L Chloride Level 108 H 98-107 mmol/L Carbon Dioxide Level 26 20-31 mmol/L Anion Gap 8 5-15 Blood Urea Nitrogen 21 9-23 mg/dL Creatinine 0.92 0.700-1.30 mg/dL Glomerular Filtration Rate Calc 89 >90 mL/min BUN/Creatinine Ratio 22.8 H 10.0-20.0 Serum Glucose 89 74-106 mg/dL Calcium Level 9.4 8.7-10.4 mg/dL Magnesium Level 2.0 1.6-2.6 mg/dL POC Glucose 111 H 70-106 mg/dl The glucose was 111 An IV Hep-Lock is being established The patient was CBC is within normal limits The chemistry panel is within normal limits The troponin level is within normal limits x2 The chest x-ray shows no sign of any abnormalities We contacted [place] and at this time the patient was being diagnosed with symptomatic bradycardia The patient was stable to be transferred The authorization #[id number] We have discussed the findings with the patient and they are in agreement with the management Images Reviewed?: Images reviewed and evaluated by me Time of 1ST Reevaluation: 13:49 Reevaluation 1ST: Unchanged Patient Education/Counseling: Diagnosis, Treatment, Prognosis Family Education/Counseling: No Family Present Departure 1 Departure Time of Disposition: 15:54 Impression: Primary Impression: Dizziness Additional Impression: Symptomatic bradycardia Disposition: 51 HOSPICE/MEDICAL FACILITY Condition: Fair Critical Care Note Critical Care Time?: Yes (45 min-critical care time only) Stability Stability form required: Yes Unstable for transfer: Telemetry monitoring (Telemetry monitoring required), ED Physician Assesment (Clinical assesment) Heart Score Heart Score: Heart Score Response (Comments) Value History Slightly Suspicious 0 EKG Normal 0 Age >65 2 Risk Factors >3 or Hx ASHD 2 Troponin Normal limit 0 Total 4 JEAN ROSS MD Dec 26, 2024 13:50
--- NOTE | 2024-12-26 13:59 | DVH ---
CHEST RADIOGRAPH Indication: weakness Technique: Frontal and lateral view of the chest was obtained Comparison: None FINDINGS: Lines and Tubes: None Lungs: Clear Pleura: No effusion. No pneumothorax. Cardiomediastinal contours: Unremarkable Bones: Unremarkable IMPRESSION: No evidence of acute disease.
[2024-12-26 14:08] LABS: Potassium 4.3 mmol/L (3.5-5.1); Sodium 142 mmol/L (136-145)
[2024-12-26 14:09] LABS: Anion Gap 8 (5-15); Calcium 9.4 mg/dL (8.7-10.4); Carbon Dioxide 26 mmol/L (20-31)
[2024-12-26 14:12] LABS: Chloride 108 mmol/L (98-107)
[2024-12-26 14:14] LABS: BUN/Creatinine Ratio 22.8 (10.0-20.0); Blood Urea Nitrogen 21 mg/dL (9-23); Glucose 89 mg/dL (74-106)
[2024-12-26 16:04] LABS: Urine Bacteria None Seen /hpf (None Seen)
[2024-12-26 16:24] LABS: Urine Blood TRACE /uL (Negative); Urine Clarity Clear (Clear); Urine Color Yellow (Yellow); Urine Mucus FEW (None Seen); Urine Protein, UAD Negative (Negative); Urine Specific Gravity 1.025 (1.001-1.035); Urine Squamous Epithelial Cell FEW /hpf (<5); Urine Urobilinogen Normal (Negative); Urine WBC 1 /HPF (0-3); Urine pH 5.5 (5.0-9.0)
[2024-12-26 20:59] VITALS: BP 117/71; PULSE 50; RESP 17; TEMP 97.7; O2SAT 96
--- NOTE | 2024-12-27 18:47 | ECG ---
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
== END 2024-12-26 21:37 | disposition short-term general hospital (02) ==
LOC: ER 13:12
DX: R00.1 Bradycardia, unspecified (principal); R42 Dizziness and giddiness; I48.91 Unspecified atrial fibrillation; E78.5 Hyperlipidemia, unspecified; Z79.899 Other long term (current) drug therapy; Z90.89 Acquired absence of other organs
CPT/HCPCS: 36415; 71046; 80048; 81001; 82947; 82962; 83735; 84484; 85025; 93005; 99291